=== PATIENT | female | born 1955 | race Caucasian/White ===

== ENCOUNTER 2016-11-01 18:32 | Emergency (ER) | payer OTHER, BC ==
[~2016-11-01] VITALS: Ht 157.5 cm; Wt 70.0 kg
[2016-11-01 18:37] VITALS: BP 190/84; PULSE 82; RESP 16; TEMP 97.9; O2SAT 99
[2016-11-01] MEDS ORDERED: ACETAMINOPHEN/HYDROcodone 325 MG/5 MG TAB PO ONE (19:30)
[2016-11-01] MEDS ORDERED: DICL50TA3 PO ×2 (19:32→19:48)
[2016-11-01] MEDS ORDERED: HYDR-3533 PO ×2 (19:32→19:48)
[2016-11-01] MEDS ORDERED: CYCL1TAB29 PO ×2 (19:32→19:48)
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
[2016-11-01] MEDS ORDERED: CYCLOBENZAPRINE HCL 10 MG TAB PO ONE (19:45)
--- NOTE | 2016-11-01 20:10 | RADRPT ---
EXAM DATE/TIME: 11/01/2016 19:56 [facility] COMPARISON: No previous studies available for comparison. INDICATIONS : Neck Pain MEDICAL HISTORY : None. SURGICAL HISTORY : None. ENCOUNTER: Initial ACUITY: 1 day PAIN SCORE: 10/10 LOCATION: neck FINDINGS: No prevertebral soft tissue swelling or compression deformity. Severe disc space narrowing endplate s clerosis and anterior osteophyte formation at C5-6 and C6-7. No fracture or listhesis. CONCLUSION: Degenerative changes. Gurpreet Nguyen MD on November 01, 2016 at 20:07 Board Certified Radiologist. This report was verified electronically.
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
== END 2016-11-01 20:43 | disposition home or self-care (01) ==
LOC: NEPB 18:32
DX: S16.1XXA Strain of muscle, fascia and tendon at neck level, initial encounter (principal); S80.01XA Contusion of right knee, initial encounter; S80.02XA Contusion of left knee, initial encounter; V43.52XA Car driver injured in collision with other type car in traffic accident, initial encounter; Y93.9 Activity, unspecified; Y92.9 Unspecified place or not applicable; Y99.9 Unspecified external cause status
CPT/HCPCS: 72040; 73560; 99284